=== PATIENT | female | born 1945 | race Caucasian/White ===

== ENCOUNTER 2017-07-15 12:37 | Inpatient (IN) | payer OTHER ==
[~2017-07-15] VITALS: Ht 157.5 cm; Wt 41.7 kg
--- NOTE | ~2017-07-15 | PROC ---
[facility] [address] [facility] [place] [address] PROCEDURE REPORT Name: VIVIANA MARTINEZ Room: [address] IN .R.#: [id number] Admission: 07/15/17 Attend Phys: Chuck Young, Discharge: 07/26/17 Date of : 41 Report #: [id number] THIS REPORT FOR: //name// For GI procedure, please see Provation report in Perceptive 7 content. By: [id number] Records Staff [facility] /NALDO
[~2017-07-15 12:37] MED LIST: ACETAMINOPHEN-1 EACH PO; ADVAIR HFA 45-218 GM IH; ALDACTONE25 MG PO; APAP500 PO; ASPIR 8181 MG PER TUBE; ASPIRIN EC81 M1 PO; AVONEX PEN30 MCG/0.5 IM; BENADRYL25 MG PER TUBE; BENTYL 10 MG CA10 MG OR; CALCIUM 500 +1 EAC4 PO; CARVEDILOL12.5 MG OR; CARVEDILOL3.125 MG PO; CENTRUM SILVER1 EAC4 PO; CENTRUM SILVER1 EACH PO; CLARITIN10 MG PO; COLACE100 MG OR; COREG3.125 MG PER TUBE; COREG6.25 MG PO; COZAAR 50 MG TA50 M2 PO; EVISTA PO; FISHOIL OR; FLONASE 0.05%50 MCG NASAL; IMDUR 30 MG TAB30 M1 PO; KRILL OIL 3001 EACH PO; LEVOTHROID150 MC1 OR; MEDROLDOSEPACK PO; METAMUCIL283 GM OR; MUCINEX600 MG PO; NITROGLYCERIN0.4 MG SUBLING; OCEAN45 ML NASAL; OSELB75 PO; OYSTER SHELL C1 EA14 PO; PAXIL10 MG OR; PERCOCET PO; PHENAZOPYRIDIN200 M2 PO; PREDNISONE50 MG PO; PRILOSEC 20 MG20 MG OR; PRINIVIL10 MG PO; SIMVASTATIN20 MG PO; TESSALON PERLE100 MG PO; VANTIN PO; ZESTRIL2.5 MG OR
[2017-07-15 12:41] VITALS: BP 133/78
[2017-07-15] MEDS ORDERED: ANTIVERT25 MG PER TUBE ×2 (12:47)
[2017-07-15 13:29] LABS: INFLUENZA A ANTIGEN None Detected (None Detect)
[2017-07-15 13:30] LABS: INFLUENZA B ANTIGEN None Detected (None Detect)
[2017-07-15 14:22] LABS: HEMATOCRIT 33.7 % (37.0-47.0); HEMOGLOBIN 11.9 gm/dL (12.0-15.0); MCHC 35.3 g/dL (28.0-37.0); MCV 87.9 fL (80.0-100.0); MPV 8.4 fl. (7.2-11.1); NUCLEATED RBCS 0 /100WBC; PLATELET COUNT* 191 thou/uL (150-400); RBC 3.84 mil/uL (4.20-5.00); RDW-CV 12.5 % (10.5-14.5); WBC 7.4 thou/uL (4.0-11.0)
[2017-07-15 14:29] LABS: CREATININE 0.5 mg/dL (0.6-1.3)
[2017-07-15 14:34] LABS: ALBUMIN 2.9 g/dL (3.4-5.0); TOTAL BILIRUBIN 0.5 mg/dL (<0.1-1.0); TOTAL PROTEIN 6.4 g/dL (6.4-8.2)
[2017-07-15 14:42] LABS: ABSOLUTE LYMPHOCYTES 0.4 thou/uL (0.8-5.3); ABSOLUTE MONOCYTES 0.7 thou/uL (0.0-1.2); ABSOLUTE NEUTROPHILS 6.2 thou/uL (1.6-8.1); PLATELET ESTIMATE ADEQUATE
[2017-07-15 16:06] VITALS: BP 139/84
[2017-07-15 16:15] VITALS: BP 131/67
[2017-07-15 18:14] LABS: CALCIUM 7.9 mg/dL (8.5-10.1); CREATININE 0.4 mg/dL (0.6-1.3); MAGNESIUM 2.1 mg/dL (1.8-2.4)
[2017-07-15 18:16] LABS: POTASSIUM 2.8 mmol/L (3.5-5.1)
[2017-07-15 20:45] VITALS: BP 139/81
[2017-07-15 23:16] LABS: URINE BILIRUBIN NEGATIVE (Negative); URINE BLOOD NEGATIVE (Negative); URINE CLARITY CLEAR; URINE COLOR YELLOW; URINE GLUCOSE-RANDOM NEGATIVE (Negative); URINE KETONES 1+ (Negative); URINE LEUKOCYTES NEGATIVE (Negative); URINE NITRITE NEGATIVE (Negative); URINE PROTEIN NEGATIVE (Negative); URINE SPECIFIC GRAVITY <= 1.005 (1.005-1.030); URINE UROBILINOGEN 0.2 E.U./dl (0.2-1.0)
[2017-07-16 00:26] VITALS: BP 147/81
[2017-07-16 04:00] VITALS: BP 139/86
[2017-07-16 05:21] LABS: HEMATOCRIT 33.8 % (37.0-47.0); HEMOGLOBIN 11.5 gm/dL (12.0-15.0); MCH 30.8 pg (26.0-34.0); MCHC 33.9 g/dL (28.0-37.0); MCV 90.7 fL (80.0-100.0); RBC 3.73 mil/uL (4.20-5.00); RDW-CV 12.9 % (10.5-14.5); WBC 5.7 thou/uL (4.0-11.0)
[2017-07-16 06:07] LABS: CALCIUM 8.1 mg/dL (8.5-10.1); CREATININE 0.5 mg/dL (0.6-1.3); MAGNESIUM 2.1 mg/dL (1.8-2.4)
[2017-07-16 06:08] LABS: POTASSIUM 3.8 mmol/L (3.5-5.1)
[2017-07-16 08:00] VITALS: BP 132/79
[2017-07-16 12:34] VITALS: BP 116/69
--- NOTE | 2017-07-16 16:04 | EKG ---
[place] [address] ELECTROCARDIOGRAM REPORT Name: VIVIANA MARTINEZ Room: [address] ADM IN M.R.#: [id number] Admission: 07/15/17 Attend Phys: Chuck Young, Discharge: Date of : 43 Report #: [id number] THIS REPORT FOR: //name// [facility] ED Test Date: 2017-07-15 Test Time: 14:43:58 Pat Name: VIVIANA MARTINEZ Department: Room: [facility] Gender: F Break Out Man: Arlet CAMARILLO : 1945 Requested By: Tawana Carroll Order Number: [id number] MD: Broderick Downing Measurements Intervals [place] Rate: 77 P: 67 DE: 177 QRS: -5 QRSD: 100 T: 60 QT: 434 QTc: 492 Interpretive Statements Sinus arrhythmia Anteroseptal infarct, old Compared to ECG 03/29/2016 14:31:47 Sinus rhythm no longer present Left-axis deviation no longer present Myocardial infarct finding still present Electronically Signed On 07-16-2017 16:04:49 MACHINE III COREMAKER by Broderick Downing [email or web address] <ELECTRONICALLY SIGNED> By: Joycelyn Downing MD, [facility] 07/16/17 1604 1443 1443 Joycelyn Downing MD, [facility] /EPI
[2017-07-16 16:30] VITALS: BP 120/81
[2017-07-16 20:00] VITALS: BP 146/81
[2017-07-17 00:01] VITALS: BP 148/81
[2017-07-17 04:03] VITALS: BP 139/83
[2017-07-17 08:00] VITALS: BP 145/76
[2017-07-17 11:40] VITALS: BP 128/81
[2017-07-17 15:51] VITALS: BP 140/78
[2017-07-17 19:50] VITALS: BP 148/92
[2017-07-18] VITALS: BP 151/93
[2017-07-18 04:59] VITALS: BP 151/86
[2017-07-18 08:10] VITALS: BP 147/96
[2017-07-18 12:42] VITALS: BP 145/95
[2017-07-18 15:56] VITALS: BP 143/86
[2017-07-18 19:09] LABS: CALCIUM 8.4 mg/dL (8.5-10.1); CREATININE 0.5 mg/dL (0.6-1.3)
[2017-07-18 19:13] LABS: POTASSIUM 2.6 mmol/L (3.5-5.1)
[2017-07-18 20:00] VITALS: BP 145/89
[2017-07-19 00:20] VITALS: BP 140/78
[2017-07-19 05:18] VITALS: BP 146/94
[2017-07-19 08:30] VITALS: BP 145/91
[2017-07-19 12:03] LABS: INR 1.1; PROTIME 10.5 Seconds (9.20-11.50)
[2017-07-19 12:11] VITALS: BP 127/88
[2017-07-19 16:13] VITALS: BP 144/83
[2017-07-19 20:00] VITALS: BP 137/86
[2017-07-20] VITALS (7 sets, daily range): BP systolic 136–155; BP diastolic 78–91
[2017-07-20 05:37] LABS: CALCIUM 8.4 mg/dL (8.5-10.1); CREATININE 0.4 mg/dL (0.6-1.3); POTASSIUM 3.8 mmol/L (3.5-5.1)
[2017-07-21] VITALS (7 sets, daily range): BP systolic 134–158; BP diastolic 68–103
[2017-07-21 05:30] LABS: HEMOGLOBIN 11.4 gm/dL (12.0-15.0); MCH 30.4 pg (26.0-34.0); MCHC 33.4 g/dL (28.0-37.0); MCV 90.8 fL (80.0-100.0); MPV 6.8 fl. (7.2-11.1); RBC 3.75 mil/uL (4.20-5.00); RDW-CV 13.1 % (10.5-14.5); WBC 4.5 thou/uL (4.0-11.0)
[2017-07-21 05:49] LABS: CALCIUM 8.1 mg/dL (8.5-10.1); CREATININE 0.4 mg/dL (0.6-1.3); POTASSIUM 3.8 mmol/L (3.5-5.1)
[2017-07-22 03:16] VITALS: BP 148/89
[2017-07-22 08:00] VITALS: BP 138/94
[2017-07-22 12:01] VITALS: BP 137/82
[2017-07-22 15:36] VITALS: BP 112/66
[2017-07-22 20:15] VITALS: BP 130/75
[2017-07-22 23:53] VITALS: BP 120/81
[2017-07-23 04:00] VITALS: BP 185/95
[2017-07-23 05:44] VITALS: BP 135/93
[2017-07-23 08:00] VITALS: BP 121/81
[2017-07-23 12:38] VITALS: BP 101/66
[2017-07-23 16:44] VITALS: BP 112/73
[2017-07-23 20:00] VITALS: BP 115/66
[2017-07-24 00:06] VITALS: BP 159/86
[2017-07-24 04:38] VITALS: BP 154/92
[2017-07-24 07:15] VITALS: BP 85/49
[2017-07-24 08:00] VITALS: BP 146/94
[2017-07-24 12:07] VITALS: BP 116/74
[2017-07-24 20:00] VITALS: BP 152/82
[2017-07-25 00:05] VITALS: BP 132/83
[2017-07-25 04:11] VITALS: BP 130/79
[2017-07-25 07:30] VITALS: BP 110/77
[2017-07-25 12:00] VITALS: BP 137/79
[2017-07-25 20:00] VITALS: BP 139/79
[2017-07-25 23:48] VITALS: BP 136/77
[2017-07-26 07:30] VITALS: BP 120/69
[2017-07-26] MEDS ORDERED: TYLENOL325 MG PER TUBE ×2 (12:31)
[2017-07-26] MEDS ORDERED: GUAICON DMS LIQ10 M1 PO ×2 (12:34)
[2017-07-26] MEDS ORDERED: KEFLEX500 M1 PO ×2 (12:38)
[2017-07-26 12:45] VITALS: BP 120/69
[2017-07-26 12:56] VITALS: BP 120/69
--- NOTE | 2017-08-02 14:45 | CON ---
[address] [address] CONSULTATION Name: VIVIANA MARTINEZ Room: [address] IN M.R.#: [id number] Admission: 07/15/17 Attend Phys: Chuck Young, Discharge: 07/26/17 Date of : 43 Report #: [id number] THIS REPORT FOR: //name// CC: Rosi Young DICTATED BY: Maria C Alvarado [facility] DATE OF SERVICE: 07/19/2017 Please note at the time of this dictation, the patient was seen and physically examined by myself. REASON FOR CONSULTATION: Aspiration pneumonia, PEG tube placement. HISTORY OF PRESENT ILLNESS: This is a 71-year-old female who is well known to our practice who has a longstanding history of MS, which has been progressively getting worse. The patient was last seen in 2015 and underwent an EGD by Dr. King in which she was noted to have poorly gloria esophagus and a tight LES. She had some Botox injections done at that time and she states she did have relief from that. She was referred to Dr. Radha flores at [facility] whom she saw back in April and underwent an esophageal motility study, which was negative. At that time, it was recommended that she have a PEG tube but because her weight was stable and everything was going well, she did not want to have it done. Her weight at that time had been running anywhere from 94-96 pounds. She is interested in proceeding with a PEG tube given her current state of health and that she was noted on a video swallow to have aspiration of her contents of liquids and food. The patient had been having increased productive cough at night as well as a sore throat. She was having body aches and chills and generalized weakness. She was realizing that she was having difficulty with eating and drinking and more difficulty with her swallowing. She has also noticed that her voice is becoming much weaker and harder for her to talk. She did see an ENT in which they did a laryngoscopic study on her, which showed that she had weakness of both of her vocal cords and that nothing further could be done at that time. This is just part of her disease process. The patient did also have a colonoscopy back in 2014, which was completely normal. ALLERGIES: INCLUDE CODEINE, LISINOPRIL, STATINS, SULFA, TRAMADOL, FLUORESCEIN, IMDUR, MEDROL AND MILK. MEDICATIONS FROM HOME: Include Evista, Avonex Pen, aspirin, Benadryl, Nitrostat, Antivert and Coreg. PAST MEDICAL HISTORY: Hypertension, dysphagia, MS diagnosed in , osteopenia, [place] [address] CONSULTATION Name: VIVIANA MARTINEZ Room: [address] IN M.R.#: [id number] Admission: 07/15/17 Attend Phys: Chuck Young, Discharge: 07/26/17 Date of : 43 Report #: [id number] PAST SURGICAL HISTORY: She has had bilateral breast biopsies and bilateral hernia repair, thyroid lumpectomy, tonsillectomy, adenoidectomy and she has had problems with angioedema with statins and lisinopril. FAMILY HISTORY: Noncontributory. SOCIAL HISTORY: Negative for any GI or female cancers. REVIEW OF SYSTEMS: Twelve-point review of systems is essentially negative except what is mentioned in the HPI. PHYSICAL EXAMINATION: VITAL SIGNS: Temperature 36.6, pulse 91, respirations 18, blood pressure 146/94. HEART: Regular rate and rhythm. LUNGS: Clear. ABDOMEN: Soft, positive bowel sounds in all 4 quadrants with some just generalized tenderness noted since she has not had a bowel movement since 07/05. LABORATORY DATA: Hemoglobin 11.9, hematocrit 33.7, white count is 7.4 and platelets are 191. Sodium 136, potassium 3.3, chloride 98, CO2 of 28, BUN is 2, creatinine 0.5, GFR is 121 and glucose is 103. Chest x-ray on admission showed some right upper lobe pneumonia. IMPRESSION: 1. Dysphagia secondary to multiple sclerosis. 2. Aspiration pneumonia. 3. Constipation. 4. Multiple sclerosis worsening. PLAN: 1. Dulcolax suppository now. 2. Soapsuds enema if no results from #1. 3. EGD, PEG placement with Dr. Menendez tomorrow. 4. Keep n.p.o. 5. Will be discontinued her Lovenox for her procedure tomorrow. 6. Further recommendations to be made once the procedure has been performed. Dietary consulted in regarding recommendations for her tube feeding supplementation. Thank you for allowing us to participate in this patient's care. Please do not hesitate to call with any questions in regard to this consult. ADDENDUM: [address] [address] CONSULTATION Name: VIVIANA MARTINEZ Room: [address] IN M.R.#: [id number] Admission: 07/15/17 Attend Phys: Chuck Young, Discharge: 07/26/17 Date of : 43 Report #: [id number] Reason for consult: Inability to swallow and aspiration per video swallow. We were consulted to evaluate the patient for possible PEG tube placement as she has MS and difficulty with swallowing and aspiration. I do not see any contraindication for placement of the PEG. She was diagnosed with pneumonia on admission, for which she received antibiotics. She appears stable from a pulmonary point of view. We will proceed with EGD and PEG tube placement tomorrow. <ELECTRONICALLY SIGNED> By: Dmitry Menendez MD 08/02/17 1445 1136 [id number] Menendez MD /nt
--- NOTE | 2017-08-15 15:43 | CON ---
[address] [address] CONSULTATION Name: VIVIANA MARTINEZ Room: [address] IN .R.#: [id number] Admission: 07/15/17 Attend Phys: Chuck Young, Discharge: 07/26/17 Date of : 43 Report #: [id number] THIS REPORT FOR: //name// CC: Rosi Young REASON FOR CONSULTATION: Evaluation and recommendations regarding post-acute rehabilitation in a 71-year-old female with multiple sclerosis that was admitted with productive cough, sore throat, body aches, chills, weakness and difficulty with drinking and eating, diagnosed with an aspiration pneumonia who is now status post PEG tube placement as of this day. She generally resides at her house. Her does help her. She does need assistance on regular basis, usually modified independent to minimum assistance with activities of daily living. Currently, she needs moderate to maximum assistance with her physical and occupational therapies. She also has needs in speech and language pathology including some cognitive impairment as well as some dysphagia, currently n.p.o. and working with speech. The aspiration pneumonia did exacerbate her MS, especially her swallowing and her lower extremity function. PAST MEDICAL AND SURGICAL HISTORY: Chest pain, dysphagia, esophageal dilatation, esophagitis, facial swelling, hypertension, hyperkalemia, multiple sclerosis, bilateral breast biopsy, bilateral hernia repair, hypertension, osteopenia, osteoarthritis, thyroid lump, tonsillectomy, adenoidectomy. ALLERGIES: CODEINE, LISINOPRIL, STATINS, SULFA, TRAMADOL, TRIMETHOPRIM, FLUORESCEIN, ISOSORBIDE, METHYLPREDNISOLONE AND MILK. MEDICATIONS: Reviewed and are available in the MAR. FAMILY HISTORY: Autoimmune disorder. SOCIAL HISTORY: No tobacco, alcohol or illicit drug use. PHYSICAL EXAMINATION: GENERAL: Alert, oriented, no apparent distress. VITAL SIGNS: Reviewed and are stable. HEENT: Head: Atraumatic, normocephalic. Pupils equal, round, reactive. ABDOMEN: Soft, nontender, nondistended. NEUROLOGIC: Cranial nerves 2-12 are grossly intact with no focal neuro deficit. She does have some generalized weakness throughout the upper and lower extremity. SKIN: Warm and dry. No rashes or lesions noted. PSYCHIATRIC: Normal mood and affect are noted. ASSESSMENT: Multiple sclerosis exacerbation with needs in physical and occupational therapy as well as speech and language pathology, both for cognitive impairment as well [place] [address] CONSULTATION Name: VIVIANA MARTINEZ Room: [address] IN [facility]#: [id number] Admission: 07/15/17 Attend Phys: Chuck Young, Discharge: 07/26/17 Date of : 43 Report #: [id number] 1. Aspiration pneumonia, currently n.p.o. and status post PEG tube placement. 2. Multiple medical comorbidities requiring ongoing medical care. PLAN: 1. Recommend acute inpatient rehabilitation to facilitate safe discharge to the home setting at baseline or better with the assistance of her who is her caregiver. 2. Continue with PT, OT and speech language pathology. 3. We will follow until acute hospitalization is completed and patient is stable for inpatient rehabilitation. <ELECTRONICALLY SIGNED> By: Leah Huerta DO 08/15/17 1543 1302 1902Leah Huerta DO /nt
[2018-05-22] MEDS ORDERED: EVISTA PO (09:25)
[2018-05-22] MEDS ORDERED: MIRALAX17 G1 PO (09:26)
== END 2017-07-26 15:45 | disposition home health service (06) | DRG 177 ==
LOC: M.ERS 12:37 → M.TBA-ER 14:37 → M.2W 14:37
PROVIDERS: Internal Medicine; Nurse Practitioner Adult Health; Physician Assistant; ADMIT Family Medicine
PROC: 0DH68UZ Insertion of Feeding Device into Stomach, Via Natural or Artificial Opening Endoscopic (ICD-10-PCS; principal; 2017-07-15)
DX: J69.0 Pneumonitis due to inhalation of food and vomit (principal); E43 Unspecified severe protein-calorie malnutrition; E87.1 Hypo-osmolality and hyponatremia; Z68.1 Body mass index [BMI] 19.9 or less, adult; I10 Essential (primary) hypertension; M19.90 Unspecified osteoarthritis, unspecified site; B37.9 Candidiasis, unspecified; E87.6 Hypokalemia; G35 Multiple sclerosis; K59.00 Constipation, unspecified; Z79.82 Long term (current) use of aspirin; Z79.899 Other long term (current) drug therapy; Z88.5 Allergy status to narcotic agent; Z88.2 Allergy status to sulfonamides; Z88.8 Allergy status to other drugs, medicaments and biological substances; Z91.011 Allergy to milk products

== ENCOUNTER 2017-08-10 21:30 | Inpatient (IN) | payer OTHER ==
[~2017-08-10] VITALS: Ht 157.5 cm; Wt 43.1 kg
[~2017-08-10 21:30] MED LIST changes: +ANTIVERT25 MG PER TUBE; +GUAICON DMS LIQ10 M1 PO; +KEFLEX500 M1 PO; +TYLENOL325 MG PER TUBE
[2017-08-10 21:43] VITALS: BP 156/72
[2017-08-10 22:04] LABS: HEMATOCRIT 32.5 % (37.0-47.0); HEMOGLOBIN 11.1 gm/dL (12.0-15.0); MCH 30.6 pg (26.0-34.0); MCHC 34.1 g/dL (28.0-37.0); MCV 89.8 fL (80.0-100.0); MPV 9.2 fl. (7.2-11.1); NUCLEATED RBCS 0 /100WBC; PLATELET COUNT* 194 thou/uL (150-400); RBC 3.62 mil/uL (4.20-5.00); RDW-CV 13.5 % (10.5-14.5)
[2017-08-10 22:10] LABS: CALCIUM 8.6 mg/dL (8.5-10.1); CREATININE 0.6 mg/dL (0.6-1.3); POTASSIUM 3.5 mmol/L (3.5-5.1)
[2017-08-10 22:15] LABS: ALBUMIN 3.4 g/dL (3.4-5.0); TOTAL BILIRUBIN 0.8 mg/dL (<0.1-1.0)
[2017-08-10 22:29] LABS: ABSOLUTE EOSINOPHILS 0.1 thou/uL (0.0-0.7); ABSOLUTE LYMPHOCYTES 0.8 thou/uL (0.8-5.3); ABSOLUTE MONOCYTES 0.7 thou/uL (0.0-1.2); ABSOLUTE NEUTROPHILS 3.5 thou/uL (1.6-8.1); ATYPICAL LYMPHS 2 %; PLATELET ESTIMATE ADEQUATE
[2017-08-10 22:37] LABS: URINE BILIRUBIN NEGATIVE (Negative); URINE BLOOD NEGATIVE (Negative); URINE CLARITY CLEAR; URINE COLOR YELLOW; URINE GLUCOSE-RANDOM NEGATIVE (Negative); URINE KETONES 1+ (Negative); URINE LEUKOCYTES-REFLEX NEGATIVE (Negative); URINE NITRITE-REFLEX NEGATIVE (Negative); URINE PROTEIN NEGATIVE (Negative); URINE UROBILINOGEN 0.2 E.U./dl (0.2-1.0)
[2017-08-10 23:24] VITALS: BP 117/69
[2017-08-11] VITALS: BP 150/72
[2017-08-11 07:45] VITALS: BP 150/86
[2017-08-11 09:27] LABS: CALCIUM 8.1 mg/dL (8.5-10.1); CREATININE 0.5 mg/dL (0.6-1.3); MAGNESIUM 2.4 mg/dL (1.8-2.4); POTASSIUM 3.2 mmol/L (3.5-5.1)
[2017-08-11 16:00] VITALS: BP 136/73
[2017-08-11 23:30] VITALS: BP 134/81
[2017-08-12 00:59] VITALS: BP 136/76
[2017-08-12 04:15] LABS: HEMATOCRIT 31.7 % (37.0-47.0); HEMOGLOBIN 10.7 gm/dL (12.0-15.0); MCH 30.8 pg (26.0-34.0); MCHC 33.9 g/dL (28.0-37.0); MCV 90.7 fL (80.0-100.0); MPV 9.7 fl. (7.2-11.1); NUCLEATED RBCS 0 /100WBC; PLATELET COUNT* 172 thou/uL (150-400); RBC 3.49 mil/uL (4.20-5.00); RDW-CV 13.4 % (10.5-14.5); WBC 3.1 thou/uL (4.0-11.0)
[2017-08-12 04:33] LABS: CALCIUM 8.1 mg/dL (8.5-10.1); CREATININE 0.4 mg/dL (0.6-1.3)
[2017-08-12 04:34] LABS: POTASSIUM 4.2 mmol/L (3.5-5.1)
[2017-08-12 06:42] LABS: ABSOLUTE LYMPHOCYTES 0.8 thou/uL (0.8-5.3); ABSOLUTE MONOCYTES 0.9 thou/uL (0.0-1.2); ABSOLUTE NEUTROPHILS 1.3 thou/uL (1.6-8.1)
[2017-08-12 06:43] LABS: PLATELET ESTIMATE ADEQUATE
[2017-08-12 08:00] VITALS: BP 138/76
[2017-08-12 17:51] VITALS: BP 144/91
[2017-08-12 20:29] VITALS: BP 159/95
[2017-08-13 00:23] VITALS: BP 146/72
[2017-08-13 00:24] VITALS: BP 139/78
[2017-08-13 04:15] LABS: ABSOLUTE LYMPHOCYTES 1.6 thou/uL (0.8-5.3); ABSOLUTE MONOCYTES 0.7 thou/uL (0.0-1.2); ABSOLUTE NEUTROPHILS 0.7 thou/uL (1.6-8.1); BASOPHILS 0.7 %; EOSINOPHILS 1.1 %; HEMATOCRIT 32.4 % (37.0-47.0); HEMOGLOBIN 11.1 gm/dL (12.0-15.0); LYMPHOCYTES 50.8 %; MCH 30.9 pg (26.0-34.0); MCHC 34.3 g/dL (28.0-37.0); MONOCYTES 23.3 %; MPV 9.5 fl. (7.2-11.1); NUCLEATED RBCS 0 /100WBC; PLATELET COUNT* 190 thou/uL (150-400); POLYS 24.1 %; RDW-CV 13.4 % (10.5-14.5); WBC 3.1 thou/uL (4.0-11.0)
[2017-08-13 04:19] LABS: CALCIUM 8.5 mg/dL (8.5-10.1); CREATININE 0.4 mg/dL (0.6-1.3); POTASSIUM 3.6 mmol/L (3.5-5.1)
[2017-08-13 08:00] VITALS: BP 170/88
--- NOTE | 2017-08-13 13:12 | EKG ---
[place] [address] ELECTROCARDIOGRAM REPORT Name: VIVIANA MARTINEZ Room: [address] ADM IN M.R.#: [id number] Admission: 08/10/17 Attend Phys: Jhoan Juarez MD Discharge: Date of : 43 Report #: [id number] THIS REPORT FOR: //name// [facility] Test Date: 2017-08-13 Test Time: 08:29:23 Pat Name: VIVIANA MARTINEZ Department: Room: [address] Gender: F Guest Relations Executive: [facility] : 1945 Requested By: Hayden Piedra Order Number: [id number] Reading MD: Bishop Guerrero Measurements Intervals [place] Rate: 64 P: 52 NE: 167 QRS: 24 QRSD: 85 T: 60 QT: 452 QTc: 467 Interpretive Statements Sinus rhythm Probable anteroseptal infarct, old Compared to ECG 07/15/2017 14:43:58 Sinus arrhythmia no longer present Myocardial infarct finding still present Electronically Signed On 08-13-2017 13:12:33 RETIREMENT SALES CONSULTANT by Bishop Guerrero [email or web address] <ELECTRONICALLY SIGNED> By: Bishop Guerrero MD, [facility] 08/13/17 1312 0829 0829 Bishop Guerrero MD, [facility] /EPI
[2017-08-13 17:45] VITALS: BP 153/91
[2017-08-14 00:49] VITALS: BP 145/78
[2017-08-14 03:28] VITALS: BP 145/78
[2017-08-14 04:25] LABS: CALCIUM 8.2 mg/dL (8.5-10.1); CREATININE 0.4 mg/dL (0.6-1.3); POTASSIUM 3.5 mmol/L (3.5-5.1)
[2017-08-14 04:28] LABS: ABSOLUTE LYMPHOCYTES 1.4 thou/uL (0.8-5.3); ABSOLUTE MONOCYTES 0.7 thou/uL (0.0-1.2); ABSOLUTE NEUTROPHILS 0.9 thou/uL (1.6-8.1); BASOPHILS 0.6 %; EOSINOPHILS 1.4 %; HEMATOCRIT 32.8 % (37.0-47.0); HEMOGLOBIN 11.2 gm/dL (12.0-15.0); LYMPHOCYTES 46.1 %; MCH 30.5 pg (26.0-34.0); MCHC 34.3 g/dL (28.0-37.0); MCV 88.9 fL (80.0-100.0); MONOCYTES 22.8 %; MPV 9.4 fl. (7.2-11.1); NUCLEATED RBCS 0 /100WBC; PLATELET COUNT* 192 thou/uL (150-400); POLYS 29.1 %; RBC 3.69 mil/uL (4.20-5.00); RDW-CV 13.4 % (10.5-14.5); WBC 3.1 thou/uL (4.0-11.0)
[2017-08-14 08:15] VITALS: BP 153/89
[2017-08-14 16:00] VITALS: BP 164/60
[2017-08-15 00:48] VITALS: BP 140/85
[2017-08-15 03:50] LABS: HEMATOCRIT 33.5 % (37.0-47.0); HEMOGLOBIN 11.3 gm/dL (12.0-15.0); MCH 30.6 pg (26.0-34.0); MCHC 33.8 g/dL (28.0-37.0); MCV 90.5 fL (80.0-100.0); MPV 8.9 fl. (7.2-11.1); NUCLEATED RBCS 0 /100WBC; PLATELET COUNT* 196 thou/uL (150-400); RDW-CV 13.1 % (10.5-14.5); WBC 3.2 thou/uL (4.0-11.0)
[2017-08-15 05:51] LABS: ABSOLUTE LYMPHOCYTES 1.9 thou/uL (0.8-5.3); ABSOLUTE MONOCYTES 0.6 thou/uL (0.0-1.2); ABSOLUTE NEUTROPHILS 0.7 thou/uL (1.6-8.1); PLATELET ESTIMATE ADEQUATE
[2017-08-15 05:52] LABS: ANISOCYTOSIS 1+; POIKILOCYTOSIS 1+
[2017-08-15 07:56] VITALS: BP 137/92
[2017-08-15] MEDS ORDERED: ANUSOL-HC25 MG RECTAL ×2 (14:33)
[2017-08-15 15:36] VITALS: BP 145/78
--- NOTE | 2017-08-15 16:29 | CON ---
[facility] [address] [place] [address] CONSULTATION Name: VIVIANA MARTINEZ Room: [address] IN M.R.#: [id number] Admission: 08/10/17 Attend Phys: Jhoan Juarez MD Discharge: Date of : 43 Report #: [id number] THIS REPORT FOR: //name// CC: Jhoan Brown DATE OF SERVICE: 08/11/2017 ADDENDUM REASON FOR CONSULTATION: Nausea, vomiting and constipation. HISTORY OF PRESENT ILLNESS: This is a 71-year-old female with history of MS, who had a PEG tube in place. The patient reports that since the PEG tube and receiving tube feeding, her constipation has worsened. Her PEG tube is in place, without any erythema or inflammation around the PEG site. The patient reports that she was just doing 50 mL of water before and after the feeding. I believe that her nausea and vomiting is related to her constipation. We will recommend MiraLax half a cap b.i.d. The patient also has to increase the water intake and possibly try to receive more water between the feedings through the PEG tube. If her symptoms of nausea and vomiting persist, we may consider a motility agent 3-4 times a day. <ELECTRONICALLY SIGNED> By: Dmitry Menendez MD 08/15/17 1629 1536 2225Farid Humza Menendez MD /umair
[2018-05-22] MEDS ORDERED: EVISTA PO (09:25)
[2018-05-22] MEDS ORDERED: MIRALAX17 G1 PO (09:26)
== END 2017-08-15 16:50 | disposition home or self-care (01) | DRG 391 ==
LOC: M.ERS 21:30 → M.TBA-ER 22:45 → M.ORTHSURG 22:45
PROVIDERS: Emergency Medicine; Internal Medicine; ADMIT Internal Medicine
DX: K59.00 Constipation, unspecified (principal); E43 Unspecified severe protein-calorie malnutrition; Z68.1 Body mass index [BMI] 19.9 or less, adult; E86.0 Dehydration; I10 Essential (primary) hypertension; M19.90 Unspecified osteoarthritis, unspecified site; E87.6 Hypokalemia; G35 Multiple sclerosis; Z88.5 Allergy status to narcotic agent; Z88.2 Allergy status to sulfonamides; Z88.8 Allergy status to other drugs, medicaments and biological substances; Z88.1 Allergy status to other antibiotic agents; Z91.011 Allergy to milk products; Z93.1 Gastrostomy status

== ENCOUNTER → 2017-09-15 | Outpatient (CLI) | payer OTHER ==
[~2017-09-15] MED LIST changes: +ANUSOL-HC25 MG RECTAL; +MIRALAX17 G1 PO
== END ==
LOC: M.RAD 09:39
DX: R13.10 Dysphagia, unspecified (principal)

== ENCOUNTER → 2018-05-18 | Outpatient (CLI) | payer OTHER | LOC: M.RAD 10:38 | DX: R13.13 Dysphagia, pharyngeal phase (principal) ==

== ENCOUNTER 2018-05-28 08:18 | Observation (INO) | payer OTHER ==
[~2018-05-28] VITALS: Ht 152.4 cm; Wt 39.5 kg
--- NOTE | ~2018-05-28 | PROC ---
[address] [address] PROCEDURE REPORT Name: VIVIANA MARTINEZ Room: [address] Lise Adam#: [id number] Admission: 05/28/18 Attend Phys: Jhoan Juarez MD Discharge: 05/30/18 Date of : 43 Report #: [id number] THIS REPORT FOR: //name// For GI report, please see the Provation report in Perceptive 7 content. By: [id number] Records Staff [facility] /NALDO
--- NOTE | ~2018-05-28 | PROC ---
[facility] [address] [place] [address] PROCEDURE REPORT Name: VIVIANA MARTINEZ Room: [address] Lise Adam#: [id number] Admission: 05/28/18 Attend Phys: Jhoan Juarez MD Discharge: 05/30/18 Date of : 43 Report #: [id number] THIS REPORT FOR: //name// For GI report, please see Provation report in Perceptive 7 content. By: [id number] Records Staff [facility] /NALDO
--- NOTE | 2018-05-28 10:13 | EKG ---
[place] [address] ELECTROCARDIOGRAM REPORT Name: VIVIANA MARTINEZ Room: [facility]#: [id number] Admission: 05/28/18 Attend Phys: Dick King DO Discharge: Date of : 43 Report #: [id number] THIS REPORT FOR: //name// [facility] Test Date: 2018-05-28 Test Time: 09:10:53 Pat Name: VIVIANA MARTINEZ Department: Room: Gender: F [employer] Officer: WILBER : 1945 Requested By: Antonio Booker Order Number: [id number] Julio MD: Miguel Winkler Measurements Intervals [place] Rate: 58 P: 28 MA: 200 QRS: -23 QRSD: 88 T: 42 QT: 452 QTc: 445 Interpretive Statements Sinus rhythm Borderline left axis deviation Borderline low voltage, extremity leads Probable septal infarct, old Compared to ECG 08/13/2017 08:29:23 No significant changes Electronically Signed On 05-28-2018 10:13:41 CDT by Miguel Winkler [email or web address] <ELECTRONICALLY SIGNED> By: Miguel Winkler MD, [facility] 05/28/18 1013 Miguel Winkler MD, [facility] /EPI
[2018-05-28 12:00] VITALS: BP 120/60
[2018-05-28 16:03] LABS: ABSOLUTE LYMPHOCYTES 0.8 thou/uL (0.8-5.3); ABSOLUTE MONOCYTES 0.5 thou/uL (0.0-1.2); ABSOLUTE NEUTROPHILS 2.2 thou/uL (1.6-8.1); BASOPHILS 0.3 %; EOSINOPHILS 0.1 %; HEMATOCRIT 35.3 % (37.0-47.0); HEMOGLOBIN 12.2 gm/dL (12.0-15.0); LYMPHOCYTES 23.7 %; MCH 32.5 pg (26.0-34.0); MCHC 34.4 g/dL (28.0-37.0); MCV 94.3 fL (80.0-100.0); MONOCYTES 14.2 %; MPV 9.4 fl. (7.2-11.1); NUCLEATED RBCS 0 /100WBC; PLATELET COUNT* 170 thou/uL (150-400); POLYS 61.7 %; RBC 3.75 mil/uL (4.20-5.00); RDW-CV 13.6 % (10.5-14.5); WBC 3.5 thou/uL (4.0-11.0)
[2018-05-28 16:15] LABS: ALBUMIN 3.3 g/dL (3.4-5.0); CALCIUM 8.2 mg/dL (8.5-10.1); CREATININE 0.4 mg/dL (0.6-1.3); TOTAL BILIRUBIN 0.4 mg/dL (<0.1-1.0); TOTAL PROTEIN 6.4 g/dL (6.4-8.2)
[2018-05-28 16:23] LABS: POTASSIUM 2.8 mmol/L (3.5-5.1)
--- NOTE | 2018-05-28 20:01 | NUR ---
ADMITTED TO 308 THIS AFTERNOON, AT BEDSIDE. A/O, DENIES DISCOMFORT, VSS, ORIENTED TO ROOM, CALL LIGHT SYSTEM, PHONE. UP W/ EXT ASSIST OF ONE FOR TOILETING IN RESTROOM, CONT OF B/B. ASSESSMENT COMPLETE, ADMITTED FOR POSTPONED PEG TUBE REPLACEMENT, PER GI, UNABLE TO PERFORM AT THIS TIME. POTASSIUM LEVEL 2.8, CHEN NOTIFIED, E-LYTE REPLACEMENT ORDERED, POTASSIUM IV INITIATED, NS @ 50/HR INITIATED, REQUIRES PILLS TO BE CRUSHED/DISOLVED. PLAN OF CARE REVIEWED, DENIES QUESTIONS AT THIS TIME, CONT POC.
[2018-05-29 04:00] VITALS: BP 123/78
[2018-05-29 05:36] LABS: ABSOLUTE LYMPHOCYTES 0.9 thou/uL (0.8-5.3); ABSOLUTE MONOCYTES 0.5 thou/uL (0.0-1.2); ABSOLUTE NEUTROPHILS 2.3 thou/uL (1.6-8.1); BASOPHILS 0.3 %; EOSINOPHILS 0.4 %; HEMATOCRIT 31.7 % (37.0-47.0); HEMOGLOBIN 11.1 gm/dL (12.0-15.0); MCH 33.1 pg (26.0-34.0); MCV 94.8 fL (80.0-100.0); MONOCYTES 14.1 %; MPV 9.6 fl. (7.2-11.1); NUCLEATED RBCS 0 /100WBC; PLATELET COUNT* 157 thou/uL (150-400); POLYS 62.2 %; RBC 3.35 mil/uL (4.20-5.00); RDW-CV 13.4 % (10.5-14.5); WBC 3.7 thou/uL (4.0-11.0)
[2018-05-29 06:03] LABS: CALCIUM 8.1 mg/dL (8.5-10.1); CREATININE 0.3 mg/dL (0.6-1.3)
[2018-05-29 06:04] LABS: POTASSIUM 4.5 mmol/L (3.5-5.1)
--- NOTE | 2018-05-29 06:48 | NUR ---
PT SLEPT OFF AND ON OVERNIGHT. RECEIVED IV AND PO POTASSIUM, AM LAB WNL. LWRIST IVF INFUSING PER PUMP. AM LABS DRAWN. UP WITH ALMA TO BSC TO VOID. DIFFICULTY SWALLOWING, NO COUGHING BUT SPITTING OUT PHLEGM/SALIVA. DRSG CDI TO ABD OLD PEG TUBE SITE. ABLE TO USE CALL LITE AND MAKE NEEDS KNOWN. GI FOLLOWING. PT STATES SHE HAD SMALL BM OVERNIGHT. BED ALARM ON FOR SAFETY OVERNIGHT.
[2018-05-29 08:00] VITALS: BP 147/81
[2018-05-29 08:21] VITALS: BP 123/78
--- NOTE | 2018-05-29 11:55 | NUR ---
SW met with pt to complete initial assessment, introduce self, and SW role. Pt lives at home with . Pt has misael, RITO, Melisa through [facility]. Pt has hx of HH through [facility] and plans to go to OP [facility] eventually. Pt explained that she won't be able to commit to the needed amount of consecutive ST sessions until her completes his eye surgery and until the winter season is over bc she does not want to chance driving in ice and snow. Pt does not anticipate dc needs at this time. SW to continue to follow to assist with safe dc planning.
[2018-05-29 16:30] VITALS: BP 160/84
--- NOTE | 2018-05-29 19:52 | NUR ---
NABIL PEG PLACEMENT WELL, NO DISTRESS NOTED, RESTING QUIETLY W/ AT BEDSIDE, UP W/ SBA TO BSC, DENIES PAIN AT THIS TIME. PLAN OF CARE REVIEWED, DENIES QUESITONS AT THIS TIME, CONT POC.
[2018-05-30] VITALS: BP 153/93
[2018-05-30 04:00] VITALS: BP 153/93
[2018-05-30 05:12] LABS: HEMATOCRIT 32.7 % (37.0-47.0); HEMOGLOBIN 11.4 gm/dL (12.0-15.0); MCH 32.8 pg (26.0-34.0); MCHC 34.7 g/dL (28.0-37.0); MCV 94.5 fL (80.0-100.0); MPV 9.6 fl. (7.2-11.1); RBC 3.46 mil/uL (4.20-5.00); RDW-CV 13.4 % (10.5-14.5); WBC 5.2 thou/uL (4.0-11.0)
[2018-05-30 05:48] LABS: CREATININE 0.5 mg/dL (0.6-1.3); MAGNESIUM 2.1 mg/dL (1.8-2.4); TOTAL BILIRUBIN 0.7 mg/dL (<0.1-1.0); TOTAL PROTEIN 5.6 g/dL (6.4-8.2)
[2018-05-30 05:54] LABS: POTASSIUM 3.3 mmol/L (3.5-5.1)
--- NOTE | 2018-05-30 05:56 | NUR ---
PT STATES SHE SLEPT WELL OVERNIGHT. TYLENOL AND MIRALAX GIVEN PER PEG TUBE AT HS WITH WATER FLUSH-TO START TUBE FEEDINGS TODAY. UP WITH ASSIST TO BSC TO VOID OVERNIGHT. LWRIST IVF INFUSING PER PUMP. TAKING SMALL AMOUNT FLUIDS ORALLY WITHOUT DIFFICULTY. ANTICIPATING DISCHARGE HOME TODAY. DRSG AROUND PEG TUBE WITH MOD AMOUNT BLOODY DRAINAGE PRESENT OVERNIGHT, CLEANSED WITH WOUND CLEANSER AND DRSG CHANGED. AM LABS. ABLE TO USE CALL LITE AND MAKE NEEDS KNOWN.
[2018-05-30 08:55] VITALS: BP 149/70
[2018-05-30 13:18] VITALS: BP 149/70
[2018-05-30 13:25] VITALS: BP 149/70
[2018-05-30 14:49] VITALS: BP 149/70
--- NOTE | 2018-05-30 14:49 | NUR ---
PT GIVE DISCHARGE INFORMATION AT THIS TIME. PT GIVEN NOTE REGARDING DATE FOR FOLLOW UP LAB DRAW. PT DENIED ANY QUESTIONS AT THIS TIME. IV REMOVED. PT LEF WITH SPOUSE TO HOME.
== END 2018-05-30 14:50 | disposition home or self-care (01) ==
LOC: M.SUR 08:18 → M.3W 13:09 → M.SUR 13:48 → M.3W 05-30 14:50
PROVIDERS: Internal Medicine; ADMIT Internal Medicine
DX: K94.23 Gastrostomy malfunction (principal); E43 Unspecified severe protein-calorie malnutrition; R53.1 Weakness; I10 Essential (primary) hypertension; G35 Multiple sclerosis; M19.90 Unspecified osteoarthritis, unspecified site; Z90.49 Acquired absence of other specified parts of digestive tract; Z98.890 Other specified postprocedural states

== ENCOUNTER → 2018-06-04 | Outpatient (CLI) | payer OTHER ==
[2018-06-04 15:37] LABS: CALCIUM 8.5 mg/dL (8.5-10.1); CREATININE 0.3 mg/dL (0.6-1.3); POTASSIUM 3.4 mmol/L (3.5-5.1)
== END ==
LOC: M.LAB 15:03
PROVIDERS: Internal Medicine
DX: E87.6 Hypokalemia (principal)

== ENCOUNTER → 2018-09-07 | Outpatient (CLI) | payer OTHER | LOC: M.RAD 08-31 12:43 | DX: J18.8 Other pneumonia, unspecified organism (principal); J98.11 Atelectasis; R13.12 Dysphagia, oropharyngeal phase ==

== ENCOUNTER 2018-09-18 13:24 | Inpatient (IN) | payer OTHER ==
[~2018-09-18] VITALS: Ht 162.6 cm; Wt 41.3 kg
--- NOTE | ~2018-09-18 | CON ---
[address] [address] CONSULTATION Name: VIVIANA MARTINEZ Room: [address] IN M.R.#: [id number] Admission: 09/18/18 Attend Phys: Jose Ramírez MD Discharge: Date of : 43 Report #: [id number] THIS REPORT FOR: //name// CC: Jose Keith DATE OF SERVICE: 09/19/2018 HISTORY OF PRESENT ILLNESS: This is a 72-year-old female patient who was evaluated by me for any relapse of multiple sclerosis. The history this patient provided is pretty unusual. She indicated that when she tried to focus, everything was very bright and she could not see anything. If she closes her eye and puts her hands in front of that, everything will turn dark. She has no symptoms this morning. She said those symptoms have resolved. The symptom had started yesterday. She feels back to her normal self. She does have macular degeneration, which is being worked up by an continuous mining machine lode miner. When she came in, she was hypokalemic with potassium of only 2.9. She was given a dose looks like in the Emergency Room for steroids. It also looks like the patient had an MRI of the brain with and without contrast by Emergency Room physician that confirmed her previous diagnosis of MS. REVIEW OF SYSTEMS: Indicate that she was diagnosed for MS with some right-sided symptoms in the 1970s. Her imaging study has indicated some lesion in the brain. They initially were not sure whether it was a tumor or MS. They were going to do a biopsy on her, but they decided not to do biopsy because she was getting better. She did undergo a spinal tap that time that demonstrated marker for MS. She is on Avelox for a long time as a disease modifying treatment. Her speech is slurred, she is still able to talk. She does not know when was the last time she was ever given steroids. She follows up with a [facility] neurologist for her MS. This was her relevant 14-point review of systems. She is not complaining of any ENT, cardiac, respiratory, GI, , musculoskeletal, constitutional, dermatological, hematological, psychiatric, throat, allergic symptom, which are associated with present symptomatology. PAST MEDICAL HISTORY: Positive for MS. FAMILY HISTORY: Negative for any early age stroke. SOCIAL HISTORY: She indicates she does not abuse alcohol. PHYSICAL EXAMINATION: Indicate she is alert. She is responsive. Her speech is slightly hesitant, but she is still able to talk, she is somewhat difficult to understand, but after sometime she is able to convey both things. Cranial nerve examination, the best I can tell is unremarkable. I did not see papilledema. She has a symmetrical strength, sensation, reflexes [place] [id number] CONSULTATION Name: VIVIANA MARTINEZ Room: [address] IN [facility]#: [id number] Admission: 09/18/18 Attend Phys: Jose Ramírez MD Discharge: Date of : 43 Report #: [id number] cerebellar sign. There is no papilledema. There is no meningeal sign. Respiratory examinations appear noncontributory. IMPRESSION AND PLAN: It is not clear that this was a relapse of multiple sclerosis. If it is a relapse of multiple sclerosis, that would be very unusual features of multiple sclerosis. I examined the patient. Her hearing and vision looks adequate today. She has no thyroid mass. She is reasonably well-built individual. Blood pressure is 145/81, respirations 18, pulse is 67, temperature is 97.6. Her MRI and blood workup was reviewed and her white count is low. MRI shows no active lesion. I discussed with the patient her options in great detail. I will favor not giving her any more steroids. I am not sure that this was a relapse of MS. We need to get an continuous mining machine lode miner to look at it to make sure there is no focal ophthalmological etiology. All of it was discussed with the patient and the family. More than 50 minutes of time was spent taking care of this patient today and majority of that time was spent counseling the patient and coordinating her care including talking to other health primary care md. By: [id number] Rosas MD /umair
[2018-09-18 14:35] LABS: ABSOLUTE LYMPHOCYTES 0.6 thou/uL (0.8-5.3); ABSOLUTE MONOCYTES 0.3 thou/uL (0.0-1.2); ABSOLUTE NEUTROPHILS 1.9 thou/uL (1.6-8.1); BASOPHILS 0.6 %; EOSINOPHILS 0.4 %; HEMATOCRIT 29.1 % (37.0-47.0); HEMOGLOBIN 10.6 gm/dL (12.0-15.0); LYMPHOCYTES 22.1 %; MCH 33.5 pg (26.0-34.0); MCHC 36.5 g/dL (28.0-37.0); MCV 91.8 fL (80.0-100.0); MONOCYTES 9.3 %; MPV 7.9 fl. (7.2-11.1); NUCLEATED RBCS 0 /100WBC; PLATELET COUNT* 186 thou/uL (150-400); POLYS 67.6 %; RBC 3.18 mil/uL (4.20-5.00); RDW-CV 13.1 % (10.5-14.5); WBC 2.8 thou/uL (4.0-11.0)
[2018-09-18 14:39] LABS: CALCIUM 7.8 mg/dL (8.5-10.1); CREATININE 0.4 mg/dL (0.6-1.3)
[2018-09-18 14:40] LABS: POTASSIUM 2.9 mmol/L (3.5-5.1)
[2018-09-18 14:44] LABS: ALBUMIN 2.5 g/dL (3.4-5.0); TOTAL BILIRUBIN 0.5 mg/dL (<0.1-1.0); TOTAL PROTEIN 5.3 g/dL (6.4-8.2)
[2018-09-18 15:19] LABS: URINE BILIRUBIN NEGATIVE (Negative); URINE BLOOD NEGATIVE (Negative); URINE CLARITY CLEAR; URINE COLOR YELLOW; URINE GLUCOSE-RANDOM NEGATIVE (Negative); URINE KETONES NEGATIVE (Negative); URINE LEUKOCYTES-REFLEX NEGATIVE (Negative); URINE NITRITE-REFLEX POSITIVE (Negative); URINE PROTEIN NEGATIVE (Negative); URINE UROBILINOGEN 0.2 E.U./dl (0.2-1.0)
[2018-09-18 15:38] LABS: ESR (SEDRATE) 15 mm/hr (0-30)
[2018-09-18 15:43] LABS: URINE WBC-REFLEX 0-5 Rare /HPF (0-5)
[2018-09-18 15:44] LABS: BACTERIA-REFLEX >30 Many /HPF (None Seen); CASTS None Seen /LPF (None Seen); CRYSTALS None Seen /LPF (None Seen); MUCUS None Seen strn/LPF (None Seen); SQUAMOUS NONE SEEN /LPF (0-3); URINE RBC None Seen /HPF (0-2)
[2018-09-18 17:55] VITALS: BP 153/82
[2018-09-18 20:00] VITALS: BP 150/87
[2018-09-19] VITALS: BP 154/89
[2018-09-19 04:00] VITALS: BP 140/74
[2018-09-19 05:04] LABS: HEMATOCRIT 33.4 % (37.0-47.0); MCH 33.2 pg (26.0-34.0); MCHC 36.1 g/dL (28.0-37.0); MCV 92.2 fL (80.0-100.0); MPV 8.3 fl. (7.2-11.1); RBC 3.62 mil/uL (4.20-5.00); RDW-CV 13.3 % (10.5-14.5); WBC 3.1 thou/uL (4.0-11.0)
[2018-09-19 05:38] LABS: CALCIUM 7.5 mg/dL (8.5-10.1); CREATININE 0.4 mg/dL (0.6-1.3)
[2018-09-19 05:44] LABS: POTASSIUM 4.9 mmol/L (3.5-5.1)
[2018-09-19 08:51] VITALS: BP 145/86
[2018-09-19 12:00] VITALS: BP 145/81
--- NOTE | 2018-09-19 13:04 | EKG ---
[place] [address] ELECTROCARDIOGRAM REPORT Name: VIVIANA MARTINEZ Room: [address] ADM IN M.R.#: [id number] Admission: 09/18/18 Attend Phys: Jose Ramírez MD Discharge: Date of : 41 Report #: [id number] THIS REPORT FOR: //name// [facility] ED Test Date: 2018-09-18 Test Time: 17:43:42 Pat Name: VIVIANA MARTINEZ Department: Room: [facility] Gender: F Mental Health Orderly: : 1945 Requested By: Tawana Ervin Order Number: [id number] MD: Miguel Winkler Measurements Intervals [place] Rate: 57 P: 16 MA: 169 QRS: -21 QRSD: 113 T: 33 QT: 495 QTc: 482 Interpretive Statements Sinus rhythm Low voltage, extremity leads Probable anteroseptal infarct, old Compared to ECG 05/28/2018 09:10:53 No significant changes Electronically Signed On 09-19-2018 13:04:12 PROGRAM STRATEGIST by Miguel Winkler [email or web address] <ELECTRONICALLY SIGNED> By: Miguel Winkler MD, [facility] 09/19/18 1304 1743 1743 Miguel Winkler MD, [facility] /EPI
[2018-09-19 16:00] VITALS: BP 149/98
[2018-09-19 20:00] VITALS: BP 154/98
[2018-09-20] VITALS: BP 117/72
[2018-09-20 04:00] VITALS: BP 119/67
[2018-09-20 05:25] LABS: CALCIUM 7.7 mg/dL (8.5-10.1); CREATININE 0.4 mg/dL (0.6-1.3); MAGNESIUM 1.7 mg/dL (1.8-2.4); POTASSIUM 3.6 mmol/L (3.5-5.1)
[2018-09-20 08:00] VITALS: BP 109/65
[2018-09-20 11:32] VITALS: BP 110/64
[2018-09-20 15:05] LABS: CALCIUM 7.8 mg/dL (8.5-10.1); CREATININE 0.4 mg/dL (0.6-1.3); POTASSIUM 3.9 mmol/L (3.5-5.1)
[2018-09-20 17:23] VITALS: BP 114/54
[2018-09-20 20:00] VITALS: BP 128/81
[2018-09-21] VITALS: BP 111/60
[2018-09-21 04:57] LABS: CALCIUM 7.6 mg/dL (8.5-10.1); CREATININE 0.4 mg/dL (0.6-1.3); MAGNESIUM 1.8 mg/dL (1.8-2.4); POTASSIUM 3.1 mmol/L (3.5-5.1)
[2018-09-21 08:00] VITALS: BP 141/94
[2018-09-21] MEDS ORDERED: SODIUM CHLORIDE1 G2 PO (09:49)
[2018-09-21] MEDS ORDERED: SYNTHROID50 MCG PO (09:49)
[2018-09-21] MEDS ORDERED: POTASSIUM20 PER TUBE (09:51)
[2018-09-21 15:46] VITALS: BP 143/78
[2018-09-21 20:00] VITALS: BP 124/72
[2018-09-22] VITALS: BP 139/73
[2018-09-22 08:00] VITALS: BP 128/80
[2018-09-22 09:11] LABS: CALCIUM 7.8 mg/dL (8.5-10.1); CREATININE 0.4 mg/dL (0.6-1.3); POTASSIUM 3.8 mmol/L (3.5-5.1)
[2018-09-22 11:11] VITALS: BP 128/80
== END 2018-09-22 11:40 | disposition home or self-care (01) | DRG 124 ==
LOC: M.ERS 13:24 → M.TBA-ER 15:54 → M.2W 15:54
PROVIDERS: Personal Emergency Response Attendant; ADMIT Internal Medicine
DX: H35.30 Unspecified macular degeneration (principal); E43 Unspecified severe protein-calorie malnutrition; E87.1 Hypo-osmolality and hyponatremia; Z68.1 Body mass index [BMI] 19.9 or less, adult; I10 Essential (primary) hypertension; M19.90 Unspecified osteoarthritis, unspecified site; E87.6 Hypokalemia; R62.7 Adult failure to thrive; E03.9 Hypothyroidism, unspecified; H54.3 Unqualified visual loss, both eyes; Z88.6 Allergy status to analgesic agent; Z88.4 Allergy status to anesthetic agent; Z88.1 Allergy status to other antibiotic agents; Z91.012 Allergy to eggs; Z88.2 Allergy status to sulfonamides; Z88.8 Allergy status to other drugs, medicaments and biological substances; Z91.018 Allergy to other foods; Z79.899 Other long term (current) drug therapy; Z79.82 Long term (current) use of aspirin; Z90.89 Acquired absence of other organs

== ENCOUNTER → 2018-10-12 | Outpatient (CLI) | payer OTHER ==
[~2018-10-12] MED LIST changes: +POTASSIUM20 PER TUBE; +SODIUM CHLORIDE1 G2 PO; +SYNTHROID50 MCG PO
== END ==
LOC: M.ULTRA 14:06
DX: M79.89 Other specified soft tissue disorders (principal)

== ENCOUNTER 2018-11-07 17:00 | Inpatient (IN) | payer OTHER ==
[~2018-11-07] VITALS: Ht 152.4 cm; Wt 37.2 kg
[2018-11-07 17:04] VITALS: BP 169/95
[2018-11-07 17:48] LABS: HEMATOCRIT 24.9 % (37.0-47.0); HEMOGLOBIN 8.9 gm/dL (12.0-15.0); MCH 34.3 pg (26.0-34.0); MCV 95.5 fL (80.0-100.0); MPV 7.9 fl. (7.2-11.1); NUCLEATED RBCS 0 /100WBC; PLATELET COUNT* 205 thou/uL (150-400); RDW-CV 14.9 % (10.5-14.5)
[2018-11-07 17:57] LABS: WBC 1.5 thou/uL (4.0-11.0)
[2018-11-07 17:59] LABS: ALBUMIN 2.6 g/dL (3.4-5.0); CALCIUM 7.9 mg/dL (8.5-10.1); CREATININE 0.3 mg/dL (0.6-1.3); POTASSIUM 3.2 mmol/L (3.5-5.1); TOTAL BILIRUBIN 0.3 mg/dL (<0.1-1.0); TOTAL PROTEIN 5.5 g/dL (6.4-8.2)
[2018-11-07 18:22] LABS: ABSOLUTE LYMPHOCYTES 0.6 thou/uL (0.8-5.3); ABSOLUTE MONOCYTES 0.1 thou/uL (0.0-1.2); ABSOLUTE NEUTROPHILS 0.8 thou/uL (1.6-8.1); PLATELET ESTIMATE ADEQUATE
[2018-11-07 19:24] LABS: MAGNESIUM 1.8 mg/dL (1.8-2.4); PHOSPHORUS* 3.1 mg/dL (2.5-4.9)
[2018-11-07 19:43] LABS: URINE BILIRUBIN NEGATIVE (Negative); URINE BLOOD NEGATIVE (Negative); URINE CLARITY CLEAR; URINE COLOR YELLOW; URINE GLUCOSE-RANDOM NEGATIVE (Negative); URINE KETONES NEGATIVE (Negative); URINE LEUKOCYTES-REFLEX NEGATIVE (Negative); URINE NITRITE-REFLEX NEGATIVE (Negative); URINE PROTEIN NEGATIVE (Negative); URINE UROBILINOGEN 0.2 E.U./dl (0.2-1.0)
[2018-11-07 21:07] VITALS: BP 120/82
[2018-11-07 21:30] VITALS: BP 148/90
[2018-11-08 04:22] LABS: HEMATOCRIT 26.1 % (37.0-47.0); HEMOGLOBIN 9.5 gm/dL (12.0-15.0); MCH 34.7 pg (26.0-34.0); MCHC 36.4 g/dL (28.0-37.0); MCV 95.5 fL (80.0-100.0); MPV 7.6 fl. (7.2-11.1); RBC 2.74 mil/uL (4.20-5.00); RDW-CV 15.3 % (10.5-14.5); WBC 2.2 thou/uL (4.0-11.0)
[2018-11-08 04:30] LABS: CALCIUM 7.7 mg/dL (8.5-10.1); CREATININE 0.3 mg/dL (0.6-1.3); MAGNESIUM 1.8 mg/dL (1.8-2.4)
[2018-11-08 04:52] LABS: POTASSIUM 2.7 mmol/L (3.5-5.1)
[2018-11-08 15:39] VITALS: BP 126/75
--- NOTE | 2018-11-08 17:03 | EKG ---
[place] [address] ELECTROCARDIOGRAM REPORT Name: VIVIANA MARTINEZ Room: [address] ADM IN M.R.#: [id number] Admission: 11/07/18 Attend Phys: Jose Ramírez MD Discharge: Date of : 41 Report #: [id number] THIS REPORT FOR: //name// [facility] ED Test Date: 2018-11-07 Test Time: 18:50:29 Pat Name: VIVIANA MARTINEZ Department: Room: [facility] Gender: F Saturator: : 1945 Requested By: Denise Santana Order Number: [id number] MD: Moose Dukes Measurements Intervals [place] Rate: 72 P: 59 CT: 173 QRS: -1 QRSD: 92 T: 76 QT: 531 QTc: 582 Interpretive Statements Normal sinus rhythm Anteroseptal infarct, age indeterminate, possible Low voltage in the limb leads Prolonged QT interval Artifact in lead(s) I,II,aVR,aVL,aVF,V1 Compared to ECG 09/18/2018 17:43:42 Prolonged QT interval now present Myocardial infarct finding still present Electronically Signed On 11-08-2018 17:03:40 CDT by Moose Dukes [email or web address] <ELECTRONICALLY SIGNED> By: Moose Dukes MD, [facility] 11/08/18 1703 49 49 Moose Dukes MD, [facility] /EPI
[2018-11-08 21:00] VITALS: BP 107/60
[2018-11-09 06:47] LABS: MAGNESIUM 1.8 mg/dL (1.8-2.4); POTASSIUM 4.3 mmol/L (3.5-5.1)
[2018-11-09 08:00] VITALS: BP 107/56
[2018-11-09 15:56] VITALS: BP 127/69
[2018-11-09 19:50] VITALS: BP 144/80
[2018-11-09 23:21] VITALS: BP 139/89
[2018-11-10 03:59] LABS: HEMATOCRIT 23.9 % (37.0-47.0); HEMOGLOBIN 8.6 gm/dL (12.0-15.0); MCH 34.8 pg (26.0-34.0); MCHC 35.9 g/dL (28.0-37.0); MCV 96.9 fL (80.0-100.0); MPV 7.3 fl. (7.2-11.1); RBC 2.46 mil/uL (4.20-5.00); RDW-CV 15.4 % (10.5-14.5)
[2018-11-10 04:22] LABS: CALCIUM 7.6 mg/dL (8.5-10.1); CREATININE 0.3 mg/dL (0.6-1.3); MAGNESIUM 2.3 mg/dL (1.8-2.4); POTASSIUM 3.4 mmol/L (3.5-5.1)
[2018-11-10 08:00] VITALS: BP 146/90
--- NOTE | 2018-11-10 11:55 | EKG ---
[place] [address] ELECTROCARDIOGRAM REPORT Name: VIVIANA MARTINEZ Room: [address] ADM IN M.R.#: [id number] Admission: 11/07/18 Attend Phys: Jose Ramírez MD Discharge: Date of : 41 Report #: [id number] THIS REPORT FOR: //name// [facility] Test Date: 2018-11-10 Test Time: 00:02:13 Pat Name: VIVIANA MARTINEZ Department: Room: [address] Gender: F [employer]: BXIONG : 1945 Requested By: Ada Marques Order Number: [id number] Reading MD: Miguel Winkler Measurements Intervals [place] Rate: 64 P: 63 ME: 193 QRS: -1 QRSD: 94 T: 76 QT: 425 QTc: 439 Interpretive Statements Sinus rhythm Anteroseptal infarct, age indeterminate Compared to ECG 11/07/2018 18:50:29 Prolonged QT interval no longer present Myocardial infarct finding still present Electronically Signed On 11-10-2018 11:55:00 CDT by Miguel Winkler [email or web address] <ELECTRONICALLY SIGNED> By: Miguel Winkler MD, FACC 11/10/18 1155 0002 0002 Miguel Winkler MD, [facility] /EPI
[2018-11-10 17:18] VITALS: BP 148/99
[2018-11-11 04:02] LABS: HEMATOCRIT 21.2 % (37.0-47.0); HEMOGLOBIN 7.5 gm/dL (12.0-15.0); MCH 34.7 pg (26.0-34.0); MCHC 35.4 g/dL (28.0-37.0); MPV 7.6 fl. (7.2-11.1); RBC 2.16 mil/uL (4.20-5.00); RDW-CV 15.2 % (10.5-14.5); WBC 3.1 thou/uL (4.0-11.0)
[2018-11-11 04:19] LABS: CALCIUM 7.5 mg/dL (8.5-10.1); CREATININE 0.4 mg/dL (0.6-1.3); MAGNESIUM 1.8 mg/dL (1.8-2.4); POTASSIUM 3.4 mmol/L (3.5-5.1)
[2018-11-11 08:45] VITALS: BP 135/77
[2018-11-11 15:36] VITALS: BP 111/69
[2018-11-11 20:00] VITALS: BP 112/65
[2018-11-12 03:59] LABS: MCH 34.9 pg (26.0-34.0); MCHC 35.4 g/dL (28.0-37.0); MCV 98.5 fL (80.0-100.0); MPV 7.4 fl. (7.2-11.1); RBC 1.82 mil/uL (4.20-5.00); RDW-CV 15.5 % (10.5-14.5); WBC 2.7 thou/uL (4.0-11.0)
[2018-11-12 04:05] LABS: HEMOGLOBIN 6.4 gm/dL (12.0-15.0)
[2018-11-12 04:15] VITALS: BP 122/62
[2018-11-12 04:15] LABS: CALCIUM 7.4 mg/dL (8.5-10.1); CREATININE 0.3 mg/dL (0.6-1.3); MAGNESIUM 1.9 mg/dL (1.8-2.4); POTASSIUM 3.3 mmol/L (3.5-5.1)
[2018-11-12 05:26] LABS: HEMATOCRIT 18.3 % (37.0-47.0); HEMOGLOBIN 6.4 gm/dL (12.0-15.0)
[2018-11-12 07:33] VITALS: BP 136/71
[2018-11-12 09:23] VITALS: BP 127/70; BP 129/71; BP 132/74; BP 135/70; BP 136/71
[2018-11-12 15:02] LABS: HEMATOCRIT 23.7 % (37.0-47.0); HEMOGLOBIN 8.3 gm/dL (12.0-15.0)
[2018-11-12 16:18] VITALS: BP 138/78
[2018-11-12 20:00] VITALS: BP 123/69
[2018-11-13 07:15] VITALS: BP 159/87
[2018-11-13 08:28] LABS: HEMATOCRIT 25.4 % (37.0-47.0); HEMOGLOBIN 8.9 gm/dL (12.0-15.0); MCH 33.2 pg (26.0-34.0); MCHC 34.9 g/dL (28.0-37.0); MCV 95.2 fL (80.0-100.0); MPV 8.7 fl. (7.2-11.1); RBC 2.67 mil/uL (4.20-5.00); RDW-CV 16.8 % (10.5-14.5); WBC 2.2 thou/uL (4.0-11.0)
[2018-11-13] MEDS ORDERED: FERREX 150 PLU1 EAC1 PER TUBE (09:23)
[2018-11-13] MEDS ORDERED: FOLIC ACID1 MG PERTUBE (09:23)
[2018-11-13 11:38] VITALS: BP 159/87
[2018-11-13 11:40] VITALS: BP 159/87
[2018-11-13 11:43] VITALS: BP 159/87
[2018-11-13 16:36] VITALS: BP 146/93
== END 2018-11-13 17:47 | DRG 640 ==
LOC: M.ERS 17:00 → M.ORTHSURG 18:31 → M.TBA-ER 18:31 → M.ORTHSURG 21:29
PROVIDERS: Internal Medicine; Nurse Practitioner Family; ADMIT Internal Medicine
DX: E86.9 Volume depletion, unspecified (principal); E43 Unspecified severe protein-calorie malnutrition; Z68.1 Body mass index [BMI] 19.9 or less, adult; E86.0 Dehydration; I10 Essential (primary) hypertension; M19.90 Unspecified osteoarthritis, unspecified site; E87.6 Hypokalemia; R62.7 Adult failure to thrive; E03.9 Hypothyroidism, unspecified; R13.10 Dysphagia, unspecified; H35.30 Unspecified macular degeneration; G35 Multiple sclerosis; Z66 Do not resuscitate; E87.1 Hypo-osmolality and hyponatremia; D72.819 Decreased white blood cell count, unspecified; D64.9 Anemia, unspecified; Z91.19 Patient's noncompliance with other medical treatment and regimen; Z88.2 Allergy status to sulfonamides; Z88.8 Allergy status to other drugs, medicaments and biological substances; Z88.6 Allergy status to analgesic agent; Z91.012 Allergy to eggs; Z91.011 Allergy to milk products; Z90.49 Acquired absence of other specified parts of digestive tract; Z79.82 Long term (current) use of aspirin; Z79.899 Other long term (current) drug therapy

== ENCOUNTER → 2018-12-18 | Outpatient (CLI) | payer OTHER ==
[~2018-12-18] MED LIST changes: +FERREX 150 PLU1 EAC1 PER TUBE; +FOLIC ACID1 MG PERTUBE
== END ==
LOC: M.RAD 09:05
DX: R13.12 Dysphagia, oropharyngeal phase (principal)

== ENCOUNTER → 2019-03-27 | Outpatient (CLI) | payer OTHER ==
--- NOTE | 2019-03-27 13:59 | 2DMMODE ---
[place] [address] 2 D/M-MODE ECHOCARDIOGRAM Name: VIVIANA MARTINEZ Room: [facility]#: [id number] Admission: 03/27/19 Attend Phys: Alek Dunn Discharge: Date of : 41 Date of Service: 03/27/19 1358 Report #: [id number] THIS REPORT FOR: //name// APPROVED REPORT Study performed: 03/27/2019 12:56:34 EXAM: Comprehensive 2D, Doppler, and color-flow Echocardiogram Patient Location: Out-Patient BSA: 1.47 HR: 71 bpm BP: 140/72 mmHg Other Information Study Quality: Adequate Indications CAD Cardiomyopathy 2D Dimensions IVSd: 11.38 (7-11mm) LVOT Diam: 20.70 (18-24mm) LVDd: 48.94 mm PWd: 11.48 (7-11mm) Ascending Ao: 29.82 (22-36mm) LVDs: 33.00 (25-40mm) Aortic Root: 27.29 mm Volumes Left Atrial Volume (Systole) LA ESV Index: 28.40 mL/m2 Aortic Valve AoV Peak Horace.: 1.43 m/s AO Peak Gr.: 8.18 mmHg LVOT Max P.78 mmHg AO Mean Gr.: 4.65 mmHg LVOT Mean P.03 mmHg LVOT Max V: 1.09 m/s AO V2 VTI: 29.00 cm LVOT Mean V: 0.65 m/s CHARY (VTI): 2.43 cm2 LVOT V1 VTI: 20.96 cm Mitral Valve E/A Ratio: 0.83 MV Decel. Time: 300.43 ms MV E Max Horace.: 0.75 m/s MV PHT: 87.13 [place] [address] 2 D/M-MODE ECHOCARDIOGRAM Name: VIVIANA MARTINEZ Room: [facility]#: [id number] Admission: 03/27/19 Attend Phys: Alek Dunn Discharge: Date of : 41 Date of Service: 03/27/19 1358 Report #: [id number] MVA (PHT): 2.53 cm2 TDI E/Lateral E': 12.50 E/Medial E': 12.50 Medial E' Horace.: 0.06 m/s Lateral E' Horace.: 0.06 m/s Pulmonary Valve PV Peak Horace.: 0.76 m/s PV Peak Gr.: 2.33 mmHg Left Ventricle The left ventricle is normal size. moderate hypokinesis of the base of the inferior wall Mild concentric left ventricular hypertrophy. Left ventricular systolic function is mildly decreased. LVEF is 45-50%. Grade I - abnormal relaxation pattern. Right Ventricle The right ventricle is normal size. The right ventricular systolic function is normal. Atria The left atrium size is normal. The right atrium size is normal. Aortic Valve Aortic valve is mildly calcified. Mild aortic regurgitation. There is no aortic valvular stenosis. Mitral Valve Mitral valve leaflets are mildly calcified. Mild mitral regurgitation. No evidence of mitral valve stenosis. Tricuspid Valve The tricuspid valve is normal in structure. There is no tricuspid valve regurgitation noted. Pulmonic Valve Pulmonic valve is not well visualized. Mild pulmonic regurgitation. Great Vessels The aortic root is normal in size. IVC is not well visualized. Pericardium There [place] [address] 2 D/M-MODE ECHOCARDIOGRAM Name: VIVIANA MARTINEZ Room: [facility]#: [id number] Admission: 03/27/19 Attend Phys: Alek Dunn Discharge: Date of : 41 Date of Service: 03/27/19 1358 Report #: [id number] <Conclusion> moderate hypokinesis of the base of the inferior wall Mild concentric left ventricular hypertrophy. LVEF is 45-50%. Aortic valve is mildly calcified. Mild aortic regurgitation. Mild mitral regurgitation. <ELECTRONICALLY SIGNED> By: Miguel Winkler MD, [facility] 03/27/19 1358 1358 57 Miguel Winkler MD, FACC /INF
== END ==
LOC: M.CRD 12:35
DX: I08.8 Other rheumatic multiple valve diseases (principal); I25.10 Atherosclerotic heart disease of native coronary artery without angina pectoris

== ENCOUNTER → 2019-05-13 | Outpatient (CLI) | payer OTHER | LOC: M.RAD 05-06 16:13 | DX: M81.0 Age-related osteoporosis without current pathological fracture (principal); M85.80 Other specified disorders of bone density and structure, unspecified site; E07.89 Other specified disorders of thyroid; Z78.0 Asymptomatic menopausal state; Z88.8 Allergy status to other drugs, medicaments and biological substances; Z88.2 Allergy status to sulfonamides ==

== ENCOUNTER → 2019-05-22 | Outpatient (CLI) | payer OTHER ==
--- NOTE | 2019-05-29 12:06 | PATH ---
[address] [address] PATHOLOGY RPT PROCEDURE Name: VIVIANA MARTINEZ Room: [facility]#: [id number] Admission: 05/22/19 Date of : 41 Discharge: Report #: [id number] Path Case #: [id number] Note [facility] Accession Number: [id number] TESTS RESULT FLAG UNITS REF RANGE LAB Clinician Provided Cytology Information No. of containers..01 Other (Miscellaneous) Source: [A] 01 THYROID DIAGNOSIS: [A] 02 Left thyroid nodule, image guided fine needle aspiration. Atypia of undetermined significance, [place] category III. See comment. THIS INTERPRETATION INCLUDES EVALUATION OF A CELL BLOCK. COMMENT Review of the imaging findings reveals a 2.95 x 2.70 x 2.29 cm irregular solid mass with scattered calcifications. The specimen shows increased cellularity of thyroid follicular cells many with some atypia and over-lacking features and a rare nuclear inclusion without significant nuclear grooving. Some areas of microfollicles are also noted. A retain RNA sample will be submitted for molecular studies and will be the subject of a separate report. Reviewed with Dr. Lj Bhatia (cytopathologist) who agrees with the diagnosis. (NATY:colton; 05/27/2019) Pathologist ICD10: 02 C73 Signed out by: Stephen Brown MD, Pathologist NPI- [id number] Performed by: Americo Guillen, Program Project Manager ([facility]) Gross description: 01 24 ML, RED, BLOODY /LCS 08/06/1840 0000 Local FLAG LEGEND: L-Low Normal,H-High Normal,LL-Alert Low,HH-Alert High <-Panic Low,>-Panic High,A-Abnormal,AA-Critical Abnormal Performed at: [facility] [address] [place] [address] [address] [place] [address] Chris Babb MD, 02 [facility] [address] [address] Stephen Brown MD, [place] [address] PATHOLOGY RPT PROCEDURE Name: VIVIANA MARTINEZ Room: [facility] Adam#: [id number] Admission: 05/22/19 Date of : 41 Discharge: Report #: [id number] Path Case #: [id number] Specimen Comment: A courtesy copy of this report has been sent to Specimen Comment: [phone]. Specimen Comment: Report sent to Performed at: [facility] [address] [facility] [address], [place] [id number] MD Chris Babb MD Phone: [phone]
== END | disposition home or self-care (01) ==
LOC: M.ULTRA 12:25
DX: E04.1 Nontoxic single thyroid nodule (principal); C73 Malignant neoplasm of thyroid gland; I10 Essential (primary) hypertension; Z98.890 Other specified postprocedural states; Z87.19 Personal history of other diseases of the digestive system; Z87.01 Personal history of pneumonia (recurrent); Z88.8 Allergy status to other drugs, medicaments and biological substances; Z88.2 Allergy status to sulfonamides; Z79.82 Long term (current) use of aspirin; Z79.899 Other long term (current) drug therapy

== ENCOUNTER → 2021-06-21 | Outpatient (CLI) | payer OTHER | LOC: M.RAD 12:31 | PROVIDERS: ATTEND Family Medicine | DX: M81.0 Age-related osteoporosis without current pathological fracture (principal) ==